=== PATIENT | female | born 1975 | race Caucasian/White ===

== ENCOUNTER 2017-03-10 14:13 | Observation (INO) ==
[2017-03-10] MEDS ORDERED: *HR* Promethazine 25 MG/ML VIAL IM ONE (14:58)
[2017-03-10] MEDS ORDERED: *HR* FentaNYL (PF) 100 MCG/2 ML VIAL IVP ONE (14:58)
[2017-03-10 15:23] LABS: Basophils % 0.3 %; Eosinophils # 0.1 K/mcL (0.0-0.6); Eosinophils % 0.5 %; Hematocrit 43.6 % (35.3-44.9); Hemoglobin 14.7 g/dL (11.5-15.4); Immature Granulocytes % 0.4 % (0-4); Lymphocytes # 2.1 K/mcL (0.6-4.6); Lymphocytes % 18.8 %; Mean Corpuscular HGB Conc 33.7 g/dL (31.6-35.5); Mean Corpuscular Hemoglobin 31.1 pg (28.0-33.3); Mean Corpuscular Volume 92.2 fL (83.0-100.0); Mean Platelet Volume 8.8 fL (9.4-12.4); Monocytes # 0.6 K/mcL (0.0-1.3); Monocytes % 5.2 %; Neutrophils # 8.4 K/mcL (1.6-8.9); Platelet Count 440 K/mcL (140-400); Red Blood Count 4.73 M/mcL (3.82-4.97); Red Cell Distribution Width 11.9 % (11.5-14.5); Segmented Neutrophils % 74.8 %
--- NOTE | 2017-03-10 15:28 | Emergency Department Note ---
Disposition Clinical Impression: Weakness Pneumonia Qualifiers: Pneumonia type: due to unspecified organism Laterality: left Lung location: lower lobe of lung Qualified Code(s): J18.1 - Lobar pneumonia, unspecified organism Disposition: Admitted As Inpatient Condition: Fair Forms: ED Satisfaction Letter Time of Disposition: 18:51 General Adult HPI - General Chief complaint: ED Nausea/Vomiting/Diarrhea Stated complaint: headache,vomiting,fevers Time Seen by Provider: 03/10/17 14:50 Nursing Notes Reviewed: Yes Vital Signs Reviewed: Yes - History of Present Illness HPI Narrative: Patient has a history of trigeminal neuralgia and did have surgery where the trigeminal nerve originated in the brain but now she has a impingement of they called the occipital nerve and presents with sudden onset of right-sided headache radiating to the forehead which began 2 weeks ago and is constant and severe and states that she has had identical headaches in the past and it always starts suddenly. This is not different than normal. She also has vomiting. Denies any blurred vision now but has had some intermittently. Yesterday had a temperature 103.8 degrees. Does not use any acetaminophen or ibuprofen today. She denies any blood in the urine or stool, pain or numbness of extremities, skin rash or bruising of the skin. No drooping of the face but her mother said that she thinks the daughter has been confused for the last week and that she is normally very talkative and is difficult to understand now does have some slurred speech at this time. Social history: Smoker, no drugs Pain Scale: 10 - Related Data Home Medications Medication Instructions Recorded Confirmed Acetaminophen [Tylenol] 500 mg PO Q6H PRN 03/10/17 03/10/17 Divalproex (12 HR) [Depakote (12 500 mg PO BID 03/10/17 03/10/17 HR)] Ibuprofen [Motrin] 400 mg PO Q6H PRN 03/10/17 03/10/17 Previous Rx's Medication Instructions Recorded Promethazine [Phenergan] 25 mg PO Q8HR PRN #14 tablet 03/02/17 Allergies Allergy/AdvReac Type Severity Reaction Status Date / Time ondansetron Allergy Vomiting Verified 10/31/16 12:26 [From Zofran (as hydrochloride)] Sulfa (Sulfonamide Allergy Swelling Verified 05/10/15 21:15 Antibiotics) of Lip/Tongue/Throat Review of Systems: As Per HPI Past Medical History - Past Medical History Medical history: Reports: asthma, migraine Psychiatric history: Reports: anxiety [employer]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 She is breathing comfortably Head: Atraumatic and EYES: PERRL, EOMI, no scleral icterus NOSE: The nose is normal in appearance without rhinorrhea NECK: Supple without rigidity, no RADHA RESP: Normal chest excursion with respiration; breath sounds clear and equal bilaterally; no wheezes, rhonchi, or rales CARD: Regular rhythm, without murmurs, rub or gallop ABD: Non-distended; non-tender, soft, without rigidity, rebound or guarding SKIN: Normal for age and race; warm and dry; no apparent lesions, no rash NEUROLOGICAL: Patient is alert and oriented times three. Cranial nerves III- XII are intact. Sensory and motor functions are intact. Strength is 5/5 for flexion and extension in all 4 extremities. Patellar DTRS are equal and intact. Finger to nose testing is equal and normal bilaterally. - General General appearance: alert Course - Consultations Consultation #1: The hospitalist, Dr. Trejo, was consulted and accepted admission of the patient. Time: 19:30 Vital Signs Temperature 97.3 F L 03/10/17 14:22 Pulse Rate 105 03/10/17 14:22 Respiratory Rate 20 03/10/17 14:22 Blood Pressure 136/89 03/10/17 14:22 O2 Sat by Pulse Oximetry 96 03/10/17 14:22 Temperature 97.3 F L 03/10/17 14:22 Pulse Rate 75 03/10/17 18:14 Respiratory Rate 16 03/10/17 18:14 Blood Pressure 124/81 03/10/17 17:24 O2 Sat by Pulse Oximetry 100 03/10/17 18:14 Oxygen Delivery Oxygen Delivery Room Air Medical Decision Making - [facility] Narrative Medical decision making narrative: We did recheck her temperature is 96.5 degrees and I do not suspect sepsis. She has had vomiting is likely dehydrated which is making her headache worse. Will receive IV fluids, labs, results are pending. 1529 - Lab Data Result diagrams: 03/10/17 15:13 03/10/17 15:13 Lab Results 03/10/17 03/10/17 03/10/17 Range/Units 14:59 15:13 15:13 WBC 11.3 H (4.3-11.1) K/mcL RBC 4.73 (3.82-4.97) M/mcL Hgb 14.7 (11.5-15.4) g/dL Hct 43.6 (35.3-44.9) % MCV 92.2 (83.0-100.0) fL MCH 31.1 (28.0-33.3) pg MCHC 33.7 (31.6-35.5) g/dL RDW 11.9 (11.5-14.5) % Plt Count 440 H (140-400) K/mcL MPV 8.8 L (9.4-12.4) fL Immature Gran % 0.4 (0-4) % Seg Neutrophils % 74.8 % Lymphocytes % 18.8 % Monocytes % 5.2 % Eosinophils % 0.5 % Basophils % 0.3 % Neutrophils # 8.4 (1.6-8.9) K/mcL Lymphocytes # 2.1 (0.6-4.6) K/mcL Monocytes # 0.6 (0.0-1.3) K/mcL Eosinophils # 0.1 (0.0-0.6) K/mcL Basophils # 0.0 (0.0-0.2) K/mcL Sodium 139 (136-145) mEq/L Potassium 3.9 (3.5-4.5) mEq/L Chloride 104 (98-109) mEq/L Carbon Dioxide 26 (19-29) mEq/L BUN 13 (7-20) mg/dL Creatinine 0.71 (0.57-1.11) mg/dL Est GFR ( Amer) > 60 (> 60) Est GFR (Non-Af Amer) > 60 (> 60) BUN/Creatinine Ratio 18 (6-26) Glucose 111 H (70-99) mg/dL Calculated Osmolality 289 (280-300) Lactic Acid (0.5-2.2) mmol/L Calcium 10.3 (8.6-10.8) mg/dL Total Bilirubin 0.4 (0.2-1.2) mg/dL Direct Bilirubin 0.2 (0.0-0.5) mg/dL Indirect Bilirubin 0.2 (0.0-1.2) mg/dL AST 11 (5-34) Units/L ALT 12 (0-55) Units/L Alkaline Phosphatase 66 (38-126) Units/L Serum Total Protein 8.2 (6.0-8.3) g/dL Albumin 4.5 (3.5-5.0) g/dL Globulin 3.7 H (2.4-3.5) g/dL Albumin/Globulin Ratio 1.2 (1.1-2.2) Lipase 13 (8-78) Units/L Urine Color (Yellow) Urine Clarity (Clear) Urine pH (5.0-8.0) pH Units Ur Specific [place] (1.010-1.025) Urine Protein (Neg-Trace) mg/dL Urine Glucose (UA) (Normal) mg/dL Urine Ketones (Negative) mg/dL Urine Blood (Negative) Urine Nitrite (Negative) Urine Bilirubin (Negative) Urine Urobilinogen (Normal) mg/dL Ur Leukocyte Esterase (Negative) Ur Culture Indicated? (NO) Urine Test Negative (Negative) Urine Opiates Screen (Qrscmu=850) ng/mL Ur Barbiturates Screen (Apexvl=656) ng/mL Ur Phencyclidine Scrn (Cutoff=25) ng/mL Ur Amphetamines Screen (Jkdqgl=9749) ng/mL U Benzodiazepines Scrn (Mzbpbg=006) ng/mL Urine Cocaine Screen (Cutoff= 300) ng/mL U Marijuana (THC) Screen (Cutoff = 50) ng/mL 03/10/17 03/10/17 03/10/17 Range/Units 15:13 15:26 16:08 WBC (4.3-11.1) K/mcL RBC (3.82-4.97) M/mcL Hgb (11.5-15.4) g/dL Hct (35.3-44.9) % MCV (83.0-100.0) fL MCH (28.0-33.3) pg MCHC (31.6-35.5) g/dL RDW (11.5-14.5) % Plt Count (140-400) K/mcL MPV (9.4-12.4) fL Immature Gran % (0-4) % Seg Neutrophils % % Lymphocytes % % Monocytes % % Eosinophils % % Basophils % % Neutrophils # (1.6-8.9) K/mcL Lymphocytes # (0.6-4.6) K/mcL Monocytes # (0.0-1.3) K/mcL Eosinophils # (0.0-0.6) K/mcL Basophils # (0.0-0.2) K/mcL Sodium (136-145) mEq/L Potassium (3.5-4.5) mEq/L Chloride (98-109) mEq/L Carbon Dioxide (19-29) mEq/L BUN (7-20) mg/dL Creatinine (0.57-1.11) mg/dL Est GFR ( Amer) (> 60) Est GFR (Non-Af Amer) (> 60) BUN/Creatinine Ratio (6-26) Glucose (70-99) mg/dL Calculated Osmolality (280-300) Lactic Acid 1.0 (0.5-2.2) mmol/L Calcium (8.6-10.8) mg/dL Total Bilirubin (0.2-1.2) mg/dL Direct Bilirubin (0.0-0.5) mg/dL Indirect Bilirubin (0.0-1.2) mg/dL AST (5-34) Units/L ALT (0-55) Units/L Alkaline Phosphatase (38-126) Units/L Serum Total Protein (6.0-8.3) g/dL Albumin (3.5-5.0) g/dL Globulin (2.4-3.5) g/dL Albumin/Globulin Ratio (1.1-2.2) Lipase (8-78) Units/L Urine Color Yellow (Yellow) Urine Clarity Clear (Clear) Urine pH 6.0 (5.0-8.0) pH Units Ur Specific [place] 1.023 (1.010-1.025) Urine Protein Negative (Neg-Trace) mg/dL Urine Glucose (UA) Normal (Normal) mg/dL Urine Ketones 15 H (Negative) mg/dL Urine Blood Negative (Negative) Urine Nitrite Negative (Negative) Urine Bilirubin Negative (Negative) Urine Urobilinogen Normal (Normal) mg/dL Ur Leukocyte Esterase Negative (Negative) Ur Culture Indicated? NO (NO) Urine Test (Negative) Urine Opiates Screen Positive H (Cuuijs=098) ng/mL Ur Barbiturates Screen Negative (Loxtvc=742) ng/mL Ur Phencyclidine Scrn Negative (Cutoff=25) ng/mL Ur Amphetamines Screen Negative (Lclecs=9088) ng/mL U Benzodiazepines Scrn Positive H (Cwxihg=189) ng/mL Urine Cocaine Screen Negative (Cutoff= 300) ng/mL U Marijuana (THC) Screen Positive H (Cutoff = 50) ng/mL
[2017-03-10 15:38] LABS: Alanine Aminotransferase 12 Units/L (0-55); Albumin 4.5 g/dL (3.5-5.0); Albumin/Globulin Ratio 1.2 (1.1-2.2); Alkaline Phosphatase 66 Units/L (38-126); Aspartate Amino Transferase 11 Units/L (5-34); BUN/Creatinine Ratio 18 (6-26); Bilirubin,Direct 0.2 mg/dL (0.0-0.5); Bilirubin,Indirect 0.2 mg/dL (0.0-1.2); Bilirubin,Total 0.4 mg/dL (0.2-1.2); Blood Urea Nitrogen 13 mg/dL (7-20); Calcium 10.3 mg/dL (8.6-10.8); Carbon Dioxide 26 mEq/L (19-29); Chloride 104 mEq/L (98-109); Globulin 3.7 g/dL (2.4-3.5); Glucose 111 mg/dL (70-99); Lipase 13 Units/L (8-78); Osmolality,Calculated 289 (280-300); Potassium 3.9 mEq/L (3.5-4.5); Sodium 139 mEq/L (136-145); Total Protein 8.2 g/dL (6.0-8.3); eGFR For African Americans > 60 (> 60); eGFR For Non-African Americans > 60 (> 60)
[2017-03-10 16:18] LABS: Bilirubin,Urine Negative (Negative); Blood,Urine Negative (Negative); Clarity,Urine Clear (Clear); Color,Urine Yellow (Yellow); Glucose,Urine (UA) Normal (Normal); Ketones,Urine 15 mg/dL (Negative); Leukocyte Esterase,Urine Negative (Negative); Nitrite,Urine Negative (Negative); Protein,Urine Negative (Neg-Trace); Specific Gravity,Urine 1.023 (1.010-1.025); Urobilinogen,Urine Normal (Normal)
[2017-03-10 16:22] LABS: Amphetamine Screen,Urine Negative ng/mL (Cutoff=1000); Barbiturate Screen,Urine Negative ng/mL (Cutoff=200); Benzodiazepines Screen,Urine Positive ng/mL (Cutoff=200); Cannabinoid Screen,Urine Positive ng/mL (Cutoff = 50); Cocaine Screen,Urine Negative ng/mL (Cutoff= 300); Opiate Screen,Urine Positive ng/mL (Cutoff=300); Phencyclidine Screen,Urine Negative ng/mL (Cutoff=25)
[2017-03-10] MEDS ORDERED: 0.9 % Sodium Chloride 1,000 ML IVC ONE ×2 (16:48→18:09)
[2017-03-10] MEDS ORDERED: Azithromycin 500 MG in D5% in Water 250 ML IVPB ONE (17:35)
[2017-03-10] MEDS ORDERED: *HR* Promethazine 25 MG/ML VIAL IVP ONE ×2 (17:35→22:11)
[2017-03-10] MEDS ORDERED: cefTRIAXone 1,000 MG in Water for inj. (sterile) 10 ML IVP ONE (17:54)
[2017-03-10] MEDS ORDERED: Naloxone 0.4 MG/ML INJ IVP PRN (22:18)
[2017-03-10] MEDS ORDERED: Acetaminophen 325 MG TABLET PO PRN (22:18)
[2017-03-10] MEDS: 0.9 % Sodium Chloride 1,000 ML IVC SCH (22:57)
[2017-03-10] MEDS: *HR* HYDROmorphone (PF) 1 MG/ML SYRINGE IVP PRN (23:01)
--- NOTE | 2017-03-10 23:16 | Internal Med History&Physical ---
Date of Encounter: 03/10/17 Time of Encounter: 23:15 Assessment and Plan (1) Occipital headache Current visit: Yes Status: Acute Tylenol and oxycodone for pain. (2) Tobacco abuse Current visit: Yes Status: Acute I advised complete smoking cessation and provided counseling. (3) Pneumonia Current visit: Yes Status: Acute Follow-up blood culture. We will obtain sputum culture. We will treat her with ceftriaxone and azithromycin. Qualifiers: Pneumonia type: due to unspecified organism Laterality: left Lung location: lower lobe of lung Qualified Code(s): J18.1 - Lobar pneumonia, unspecified organism Internal Medicine - H&P: HPI Chief complaint: Headache Admitted From: Emergency Dept Plans for Post Hospital Care: Home History of present illness: Ms. Vanessa is a 41 year old female with past medical history significant for migraine headache and trigeminal neuralgia status post surgical intervention who presented to the hospital with 1 week of cough, congestion and shortness of breath. She reports worsening cough with green sputum production associated with subjective fevers at home and measured fever of 103. She had upper respiratory symptoms for the last 3 weeks. One week ago she presented to the hospital and was given symptomatic treatment and sent home. For the last 2 days she reports increasing nausea and vomiting and unable to tolerate food. Review of systems positive for occipital headache otherwise negative. Family history was reviewed and found to be noncontributory to this case. Social history: She smokes 5 cigarettes a day, denies alcohol abuse, smokes marijuana, denies intravenous drug use. Past Med Surg Social Fam HX - Past Medical History Medical history: asthma, migraine Psychiatric history: anxiety - Past Surgical History Surgical History: cholecystectomy - Social History Smoking Status: Current every day smoker Smokeless Tobacco Status: No Alcohol use: none Drug use: marijuana - Family History Mother Living Status: Still Living Daughter Age: 14 Living Status: Still Living Hx Family Autoimmune Disorders: Yes (Abhishek) Internal Medicine - H&P: Meds Promethazine [Phenergan] 25 mg PO Q8HR PRN #14 tablet 03/02/17 [Rx] Acetaminophen [Tylenol] 500 mg PO Q6H PRN 03/10/17 [History] Divalproex (12 HR) [Depakote (12 HR)] 500 mg PO BID 03/10/17 [History] Ibuprofen [Motrin] 400 mg PO Q6H PRN 03/10/17 [History] 3 Allergy/AdvReac Type Severity Reaction Status Date / Time ondansetron Allergy Vomiting Verified 10/31/16 12:26 [From Zofran (as hydrochloride)] Sulfa (Sulfonamide Allergy Swelling Verified 05/10/15 21:15 Antibiotics) of Lip/Tongue/Throat All Systems PM: A 10-system review of systems was performed and is negative for pertinent findings except as documented above in the HPI. - Constitutional Vitals: Temp Pulse Resp BP Pulse Ox 98.0 F 86 14 119/76 99 03/10/17 23:03 03/10/17 23:03 03/10/17 23:03 03/10/17 23:03 03/10/17 23:03 General appearance: Present: A&O X 3 - Eye Eye exam: Present: PERRL, conjuntiva pink, sclera anicteric Pupils: Present: PERRL - Respiratory Respiratory exam: Present: CTAB. Absent: accessory muscle use, rales, rhonchi, wheezes - Cardiovascular Cardiovascular exam: Present: RRR, +S1, +S2. Absent: diastolic murmur, gallop, rubs, systolic murmur - GI/Abdominal GI/Abdominal exam: Present: normal bowel sounds, soft, no peritoneal signs. Absent: distended, tenderness - Extremities Exam Extremities exam: Present: warm, radial pulses palpable and symmetrical. Absent : calf tenderness, cyanotic, pedal edema - Skin Skin exam: Present: dry, intact Internal Med - H&P Results - Labs CBC & Chem 7: 03/11/17 04:55 03/11/17 04:55
[2017-03-11] MEDS: *HR* Promethazine 25 MG/ML VIAL IVP PRN ×4 (01:13→21:04)
[2017-03-11] MEDS: *HR* OxyCODONE Immed Rel 5 MG TABLET PO PRN ×3 (05:22→22:16)
[2017-03-11 05:24] LABS: Basophils % 0.3 %; Eosinophils % 0.3 %; Hematocrit 34.8 % (35.3-44.9); Immature Granulocytes % 0.4 % (0-4); Lymphocytes # 3.5 K/mcL (0.6-4.6); Lymphocytes % 36.8 %; Mean Corpuscular HGB Conc 33.3 g/dL (31.6-35.5); Mean Corpuscular Hemoglobin 30.9 pg (28.0-33.3); Mean Corpuscular Volume 92.6 fL (83.0-100.0); Mean Platelet Volume 8.9 fL (9.4-12.4); Monocytes # 0.6 K/mcL (0.0-1.3); Neutrophils # 5.3 K/mcL (1.6-8.9); Platelet Count 358 K/mcL (140-400); Red Blood Count 3.76 M/mcL (3.82-4.97); Red Cell Distribution Width 11.9 % (11.5-14.5); Segmented Neutrophils % 56.2 %
[2017-03-11 05:26] LABS: Hemoglobin 11.6 g/dL (11.5-15.4)
[2017-03-11 05:45] LABS: BUN/Creatinine Ratio 21 (6-26); Blood Urea Nitrogen 12 mg/dL (7-20); Carbon Dioxide 25 mEq/L (19-29); Chloride 109 mEq/L (98-109); Glucose 84 mg/dL (70-99); Osmolality,Calculated 287 (280-300); Potassium 3.9 mEq/L (3.5-4.5); Sodium 139 mEq/L (136-145); eGFR For African Americans > 60 (> 60); eGFR For Non-African Americans > 60 (> 60)
[2017-03-11 05:50] LABS: Calcium 8.6 mg/dL (8.6-10.8)
[2017-03-11] MEDS: Azithromycin 250 MG TABLET PO SCH (10:03)
[2017-03-11] MEDS: Divalproex (12 HR) 500 MG TABLET PO SCH ×2 (10:03→21:04)
[2017-03-11] MEDS: cefTRIAXone 1,000 MG in Water for inj. (sterile) 10 ML IVP SCH (10:04)
[2017-03-11] MEDS: *HR* HYDROmorphone (PF) 1 MG/ML SYRINGE IVP PRN (10:15)
[2017-03-11] MEDS: 0.9 % Sodium Chloride 1,000 ML IVC SCH (14:51)
[2017-03-11] MEDS ORDERED: GI Cocktail 40 ML EACH PO ONE (14:52)
[2017-03-11] MEDS ORDERED: Metoclopramide 10 MG/2 ML VIAL IVP ONE (15:17)
--- NOTE | 2017-03-11 15:19 | Internal Med Progress Note ---
Date of Encounter: 03/11/17 Time of Encounter: 15:17 - Assessment and plan (1) Migraine Current Visit: Yes Status: Acute Assessment and plan: Patient reports chronic headaches since 02/2016. Follows with Neurology at outside hospital. Was supposed to see pain management but has not been able to follow-up in a year's time. Head CT with post-surgical changes otherwise non- acute. Stop IV Dilaudid, continue PRN oxycodone. Trial headache cocktail. Qualifiers: Intractability: not intractable Qualified Code(s): G43.909 - Migraine, unspecified, not intractable, without status migrainosus (2) Trigeminal neuralgia Current Visit: Yes Status: Acute Assessment and plan: per hx. history of appears to be Rhizotomy (recent reports blue surgery in the past). Has had chronic headaches since 02/2016. Plan as noted above. (3) Pneumonia Current Visit: Yes Status: Acute Assessment and plan: AB DCT with incidental finding of left lower lobe pneumonia. Continue IV azithromycin, ceftriaxone. Urinary antigens, sputum culture and respiratory PCR pending Qualifiers: Pneumonia type: due to unspecified organism Laterality: left Lung location: lower lobe of lung Qualified Code(s): J18.1 - Lobar pneumonia, unspecified organism (4) DVT prophylaxis Current Visit: Yes Status: Acute Assessment and plan: Heparin - Subjective Interval history: Seen and examined bedside. Patient is new to me, information obtained from chart review and patient report. She is complaining of 10 out of 10 headache. Headache is diffuse and not localized to one area. Nothing makes better, movement and light makes worse. With intermittent nausea but tolerating food. No nuchal rigidity, no fevers or chills. - Constitutional Vitals: Temp Pulse Resp BP Pulse Ox 98.2 F 77 18 128/81 99 03/11/17 15:08 03/11/17 15:08 03/11/17 15:08 03/11/17 15:08 03/11/17 15:08 General appearance: Present: cachectic, A&O X 3 - Head Head exam: Present: atraumatic, normocephalic - Eye Eye exam: Present: PERRL, conjuntiva pink, sclera anicteric Pupils: Present: PERRL - Expanded ENT Exam Teeth exam: Present: edentulous - Neck Neck exam general surgery: Present: supple, trachea midline. Absent: lymphadenopathy - Respiratory Respiratory exam: Present: CTAB. Absent: accessory muscle use, rales, rhonchi, wheezes - Cardiovascular Cardiovascular exam: Present: RRR, +S1, +S2. Absent: diastolic murmur, gallop, rubs, systolic murmur - GI/Abdominal GI/Abdominal exam: Present: normal bowel sounds, soft, no peritoneal signs. Absent: distended, tenderness - Extremities Exam Extremities exam: Present: warm, radial pulses palpable and symmetrical. Absent : calf tenderness, cyanotic, pedal edema - Neurological Exam Neurological exam: Present: CN II-XII intact, oriented X3, no focal deficits. Absent: pronater drift, facial droop, speech deficit - Skin Skin exam: Present: dry, intact Internal Medicine: Result - Labs CBC & Chem 7: 03/11/17 04:55 03/11/17 04:55 Labs: Short CBC 03/11/17 Range/Units 04:55 WBC 9.5 (4.3-11.1) K/mcL Hgb 11.6 D (11.5-15.4) g/dL Hct 34.8 L (35.3-44.9) % Plt Count 358 (140-400) K/mcL Neutrophils # 5.3 (1.6-8.9) K/mcL BMP 03/11/17 04:55 Sodium 139 Potassium 3.9 Chloride 109 Carbon Dioxide 25 BUN 12 Creatinine 0.56 L Glucose 84 Calcium 8.6 D Consult Discharge Plan - Plan Referrals: NONE,PCP [Primary Care Provider] -
[2017-03-11] MEDS: *HR* Heparin 5,000 UNIT/ML VIAL SQ SCH (21:06)
[2017-03-12] MEDS ORDERED: *HR* Promethazine 25 MG/ML VIAL IVP ONE (01:21)
[2017-03-12] MEDS: *HR* Heparin 5,000 UNIT/ML VIAL SQ SCH (06:39)
[2017-03-12] MEDS: *HR* Promethazine 25 MG/ML VIAL IVP PRN ×2 (09:14→16:20)
[2017-03-12] MEDS: cefTRIAXone 1,000 MG in Water for inj. (sterile) 10 ML IVP SCH (09:14)
[2017-03-12] MEDS: Azithromycin 250 MG TABLET PO SCH (09:15)
[2017-03-12] MEDS: Divalproex (12 HR) 500 MG TABLET PO SCH (09:15)
[2017-03-12 10:52] LABS: Basophils % 0.3 %; Eosinophils % 0.6 %; Hematocrit 33.5 % (35.3-44.9); Hemoglobin 11.6 g/dL (11.5-15.4); Immature Granulocytes % 0.2 % (0-4); Lymphocytes # 2.7 K/mcL (0.6-4.6); Lymphocytes % 42.4 %; Mean Corpuscular HGB Conc 34.6 g/dL (31.6-35.5); Mean Corpuscular Hemoglobin 31.3 pg (28.0-33.3); Mean Corpuscular Volume 90.3 fL (83.0-100.0); Mean Platelet Volume 8.7 fL (9.4-12.4); Monocytes # 0.5 K/mcL (0.0-1.3); Monocytes % 7.6 %; Neutrophils # 3.1 K/mcL (1.6-8.9); Platelet Count 277 K/mcL (140-400); Red Blood Count 3.71 M/mcL (3.82-4.97); Red Cell Distribution Width 11.7 % (11.5-14.5); Segmented Neutrophils % 48.9 %
[2017-03-12 11:03] LABS: Blood Urea Nitrogen 10 mg/dL (7-20); Carbon Dioxide 25 mEq/L (19-29); Chloride 106 mEq/L (98-109); Potassium 3.5 mEq/L (3.5-4.5); Sodium 138 mEq/L (136-145)
[2017-03-12 11:04] LABS: BUN/Creatinine Ratio 17 (6-26); Calcium 8.6 mg/dL (8.6-10.8); Glucose 83 mg/dL (70-99); Osmolality,Calculated 284 (280-300); eGFR For African Americans > 60 (> 60); eGFR For Non-African Americans > 60 (> 60)
[2017-03-12 15:11] VITALS: BP 112/73
--- NOTE | 2017-03-12 15:30 | Discharge Summary ---
Date of Encounter: 03/12/17 Time of Encounter: 12:00 - Discharge Medications Prescriptions: Azithromycin [Zithromax] 500 mg PO DAILY #5 tablet Home Medications: Promethazine [Phenergan] 25 mg PO Q8HR PRN #14 tablet 03/02/17 [Rx] Acetaminophen [Tylenol] 500 mg PO Q6H PRN 03/10/17 [History] Divalproex (12 HR) [Depakote (12 HR)] 500 mg PO BID 03/10/17 [History] Ibuprofen [Motrin] 400 mg PO Q6H PRN 03/10/17 [History] Azithromycin [Zithromax] 500 mg PO DAILY #5 tablet 03/12/17 [Rx] Allergies/Adverse Reactions: 3 Allergy/AdvReac Type Severity Reaction Status Date / Time ondansetron Allergy Vomiting Verified 10/31/16 12:26 [From Zofran (as hydrochloride)] Sulfa (Sulfonamide Allergy Swelling Verified 05/10/15 21:15 Antibiotics) of Lip/Tongue/Throat Date of admission: 03/10/17 19:50 Primary care physician: PCP NONE - Patient Status Disposition: Home, Self-Care Condition: Fair - Discharge Instructions Follow Up With: NONE,PCP [Primary Care Provider] - Hospital course: Patient is a 41-year-old female with past medical history significant for migraine headaches and trigeminal neuralgia status post-surgical intervention who presented to the ER on 03/10/17 with productive cough and subjective fevers. Patient reported that her symptoms began approximately 3 weeks prior to admission and decided to come to the ER for evaluation. In the ER, patient was found to have leukocytosis and left lower lobe infiltrate on imaging. Patient was admitted to the medical floor for management of community acquired pneumonia. During patients hospital stay, her symptoms improved and leukocytosis resolved after treatment with IV azithromycin and ceftriaxone. Patient will be discharged to continue a 5 day course of azithromycin and to follow up for primary care provider. - Time Spent with Patient Total time spent providing and/or coordinating discharge services: Less than 30 minutes - Constitutional Vitals: Temp Pulse Resp BP Pulse Ox 99.0 F 80 16 112/73 93 03/12/17 15:10 03/12/17 15:10 03/12/17 15:10 03/12/17 15:10 03/12/17 15:10 General appearance: Present: cachectic, A&O X 3 - Respiratory Respiratory exam: Present: CTAB. Absent: accessory muscle use, rales, rhonchi, wheezes - Cardiovascular Cardiovascular exam: Present: RRR, +S1, +S2. Absent: diastolic murmur, gallop, rubs, systolic murmur
== END 2017-03-12 17:00 | disposition home or self-care (01) ==
LOC: EMEROO 14:13 → 3BNU 14:13 → SUATTDRO 19:50 → 3BNU 20:04
PROVIDERS: ADMIT Internal Medicine; ATTEND Hospitalist